=== PATIENT | female | born 1930 | race Caucasian/White ===

== ENCOUNTER 2018-02-02 09:46 | Day surgery (SDC) | payer MEDICARE, BC ==
[2018-01-29 10:07] LABS: BASOPHILS % (AUTO) 0.3 % (0-1); EOSINOPHILS # (AUTO) 0.1 X10'3 (0-0.9); EOSINOPHILS % (AUTO) 0.8 % (0-6); HEMOGLOBIN 12.8 g/dl (12.0-16.0); LYMPHOCYTES # (AUTO) 1.1 X10'3 (1.1-4.8); LYMPHOCYTES % (AUTO) 15.6 % (21-51); MEAN CORPUSCULAR HEMOGLOBIN 30.9 PG (27.0-31.0); MEAN CORPUSCULAR HGB CONC 33.7 % (33.0-36.5); MEAN CORPUSCULAR VOLUME 91.4 FL (78-98); MEAN PLATELET VOLUME 7.8 FL (7.4-10.4); MONOCYTES # (AUTO) 0.4 X10'3 (0-0.9); MONOCYTES % (AUTO) 5.9 % (2-12); NEUTROPHILS # (AUTO) 5.7 X10'3 (1.8-7.7); NEUTROPHILS % (AUTO) 77.4 % (42-75); PLATELET COUNT 210 X10'3 (140-440); RED BLOOD COUNT 4.16 X10'6 (4.20-5.60); RED CELL DISTRIBUTION WIDTH 13.9 % (11.5-14.5); WHITE BLOOD COUNT 7.4 X10'3 (4.5-11.0)
[2018-01-29 10:17] LABS: PARTIAL THROMBOPLASTIN TIME 26 SECONDS (22-32); PROTHROMBIN TIME 10.3 SECONDS (9.0-12.0)
[2018-01-29 10:26] LABS: ANION GAP 7 (8-16); BLOOD UREA NITROGEN 14 MG/DL (7-18); BUN/CREATININE RATIO 23.3 (6.6-38.0); CALCIUM 9.2 MG/DL (8.5-10.1); CHLORIDE 105 MMOL/L (99-107); CHOLESTEROL 169 MG/DL (0-200); GLUCOSE 106 MG/DL (70-104); LDL CHOLESTEROL 105 MG/DL (50-100); POTASSIUM 4.1 MMOL/L (3.5-5.1); SODIUM 141 MMOL/L (135-145); TOTAL CARBON DIOXIDE 29.5 MMOL/L (24-32); TRIGLYCERIDES 62 MG/DL (20-135); eGFR > 90 ML/MIN
[2018-01-29 10:40] LABS: CHOL/HDL RATIO 3.6 (0.00-4.99); HDL CHOLESTEROL 47 MG/DL (35-60)
[2018-02-02] VITALS (11 sets, daily range): BP systolic 124–174; BP diastolic 56–107
[~2018-02-02] VITALS: Ht 152.4 cm; Wt 56.6 kg
[2018-02-02] MEDS ORDERED: diphenhydrAMINE 25mg capsule PO PRN (10:10)
[2018-02-02] MEDS ORDERED: normal saline 1000ml 1,000 ML IV SCH (10:10)
[2018-02-02] MEDS ORDERED: LORazepam 0.5 MG tablet PO PRN (10:10)
[2018-02-02] MEDS ORDERED: ATEN-169 PO (10:12)
[2018-02-02] MEDS ORDERED: ATOR40TA PO (10:12)
[2018-02-02] MEDS ORDERED: NAPR220C15 PO (10:12)
[2018-02-02] MEDS ORDERED: ASPI81TA52 PO (10:12)
[2018-02-02] MEDS ORDERED: TRAM50TA2 PO (10:12)
[2018-02-02] MEDS ORDERED: CARB15DR EACHEYE (10:12)
[2018-02-02] MEDS ORDERED: iohexol 350MG/ML 100ml bottle IV ONE (12:06)
[2018-02-02] MEDS ORDERED: LIDOcaine 1%/PF (10mg/ml) 5ml vial ONE (12:06)
[2018-02-02] MEDS ORDERED: fentaNYL/PF 50MCG/1 ML 2ML syringe ONE (12:06)
[2018-02-02] MEDS ORDERED: midazolam 2 mg/2 ml injection ONE (12:06)
[2018-02-02] MEDS ORDERED: furosemide 40mg/4ml inj ONE (13:19)
[2018-02-02] MEDS ORDERED: traMADol 50MG tablet PO PRN (14:40)
== END 2018-02-02 19:10 | disposition home or self-care (01) ==
LOC: SSTAY O 09:46
PROVIDERS: ATTEND Internal Medicine Interventional Cardiology
DX: I25.119 Atherosclerotic heart disease of native coronary artery with unspecified angina pectoris (principal); I10 Essential (primary) hypertension; E78.5 Hyperlipidemia, unspecified; G89.29 Other chronic pain; I34.0 Nonrheumatic mitral (valve) insufficiency; I42.9 Cardiomyopathy, unspecified; I27.20 Pulmonary hypertension, unspecified; Z86.73 Personal history of transient ischemic attack (TIA), and cerebral infarction without residual deficits; Z86.74 Personal history of sudden cardiac arrest; Z72.89 Other problems related to lifestyle; Z79.82 Long term (current) use of aspirin; Z79.01 Long term (current) use of anticoagulants; Z79.899 Other long term (current) drug therapy
CPT/HCPCS: 36415; 80048; 80061; 82948; 85025; 85610; 85730; 93458; A6257; C1769; J1644; J1940; J2001; J7030; Q0163; Q9967; A4620; J2250; J3010